=== PATIENT | female | born 1965 | race Caucasian/White ===

== ENCOUNTER 2021-03-20 12:51 | Emergency (ER) | payer OTHER, SELFPAY ==
--- NOTE | ~2021-03-20 | XR_ITS ---
EXAMINATION: XR humerus RT DATE: 03/20/2021 13:28 INDICATION: Right upper arm pain. TECHNIQUE: 2 views of right humerus were obtained. COMPARISON: None. FINDINGS: Bone alignment is normal. No fracture. There is mild acromioclavicular joint osteoarthritis . Glenohumeral joint is normal. There is an enthesophyte at lateral humeral epicondyle. No elbow join t effusion. IMPRESSION: 1. Mild acromioclavicular joint osteoarthritis. Reviewed, dictated and finalized at location A.
[2021-03-20 13:07] VITALS: BP 165/91; PULSE 82; RESP 18; TEMP 36.1; O2SAT 100
--- NOTE | 2021-03-20 13:07 | ED.UPPEXIN ---
HPI - Extremity Injury (Upper) General Chief Complaint: Extremity Problem,Nontraumatic Stated Complaint: rt arm popped Time Seen by Provider: 03/20/21 13:05 Source: patient and RN notes reviewed Mode of arrival: ambulatory Limitations: no limitations History of Present Illness HPI narrative: 55-year-old female presents to the [facility] with complaints of right bicep/humeral pain after feeling a pop when she was hanging hangers above her head. Patient states due to her fibromyalgia she cannot stand up for long periods of time and has to do her work while sitting. Tenderness is noted to the bicep area with extension of the elbow and an outward rotation of the forearm. No pain at the elbow or at the wrist. Sensation intact in all 5 fingers. Good web consultant. Positive radial pulse. Related Data Home Medications Medication Instructions Recorded Confirmed duloxetine 90 mg PO DAILY 03/20/21 03/20/21 gabapentin 100 mg DAILY 03/20/21 03/20/21 metformin 500 mg BID 03/20/21 03/20/21 nebivolol [Bystolic] 10 mg DAILY 03/20/21 03/20/21 Allergies Allergy/AdvReac Type Severity Reaction Status Date / Time codeine AdvReac Rash Verified 03/20/21 13:53 Morpholine Analogues AdvReac Rash Verified 03/20/21 13:54 Review of Systems Review of Systems: Narrative: CONSTITUTIONAL: Denies fever, chills, or sweats. CARDIOVASCULAR: Denies chest pain, palpitations, or edema. RESPIRATORY: Denies cough or dyspnea. GASTROINTESTINAL: Denies abdominal pain, nausea, vomiting, or diarrhea. MUSCULOSKELETAL: Denies back pain, joint pain. Right bicep pain NEUROLOGIC: Denies headache, numbness, or weakness. PSYCHIATRIC: Denies anxiety or depression. All other systems reviewed are negative, except as documented in HPI. PMFSH Past Medical History Medical History (Updated 03/20/21 @ 15:48 by Natalie Barlow) Degenerative disc disease Diabetes Fibromyalgia Hypertension Osteoarthritis Social History Social History Gender identity (if verbalized by the patient): Female Comments At the time of my signature, I reviewed and agree with the nursing past medical, surgical, social, and family history. There is no relevant family history pertinent to the patient complaint. Exam Narrative: Exam Narrative: GENERAL: This is a well-nourished, well-developed patient, in no apparent distress. Morbidly obese HEAD: normocephalic, atraumatic. EYES: PERRL. Sclera clear/white. Vision is grossly intact. EARS: External ears normal NECK: Neck supple, non-tender CARDIOVASCULAR: Regular rate and rhythm without murmurs, gallops, or rubs. RESPIRATORY: Clear to auscultation. Breath sounds equal bilaterally. No wheezes, rales, or rhonchi. GASTROINTESTINAL: Abdomen soft, non-tender SKIN: warm, Dry, intact with no suspicious lesions or rash, good texture and turgor. NEURO: awake, alert, and oriented to person, place and time. There were no obvious focal neurologic abnormalities. EXTREMITIES: No joint tenderness, effusion, or edema noted. No calf tenderness. Negative Homans sign bilaterally. Right upper arm pain with extension at the elbow, states pain is mid bicep. External rotation patient reports pain mid bicep. Has full range of motion of the elbow and wrist. Patient only able to raise arm just below 90 secondary to bicep pain. No tricep on palpation. BACK: Nontender without deformity. Course Vital Signs Vital signs: Vital Signs Temperature 97.0 F L 03/20/21 13:07 Pulse Rate 82 03/20/21 13:07 Respiratory Rate 18 03/20/21 13:07 Blood Pressure 165/91 H 03/20/21 13:07 Pulse Oximetry 100 03/20/21 13:07 Temperature 97.0 F L 03/20/21 13:07 Pulse Rate 82 03/20/21 13:07 Respiratory Rate 18 03/20/21 13:07 Blood Pressure 165/91 H 03/20/21 13:07 Pulse Oximetry 100 03/20/21 13:07 Reviewed MDM - Extremity Injury (Upper) MDM Narrative Medical decision making narrative: Discharge instructions rev
== END 2021-03-20 13:43 | disposition home or self-care (01) ==
PROVIDERS: Emergency Provider Nurse Practitioner
DX: S46.211A Strain of muscle, fascia and tendon of other parts of biceps, right arm, initial encounter (principal); X50.9XXA Other and unspecified overexertion or strenuous movements or postures, initial encounter; M79.7 Fibromyalgia; E11.9 Type 2 diabetes mellitus without complications; I10 Essential (primary) hypertension; M19.90 Unspecified osteoarthritis, unspecified site
CPT/HCPCS: 73060; 99203; G0463